=== PATIENT | male | born 1955 | race Caucasian/White ===

== ENCOUNTER 2020-08-29 08:00 | Outpatient (CLI) | payer MEDICARE, OTHER ==
[2020-08-29 11:54] LABS: BASOPHILS # (AUTO) 0.1 10^3/uL (0.0-0.1); BASOPHILS % (AUTO) 0.6 %; EOSINOPHILS # (AUTO) 0.4 10^3/uL (0.0-0.7); EOSINOPHILS % (AUTO) 4.4 %; HGB - HEMOGLOBIN 12.5 g/dL (14.0-18.0); LYMPHOCYTES # (AUTO) 1.6 10^3/uL (1.5-3.5); LYMPHOCYTES % (AUTO) 19.9 %; MEAN CORPUSCULAR HEMOGLOBIN 29.9 pg (27.0-31.0); MEAN CORPUSCULAR HGB CONC 31.7 g/dL (32.0-36.0); MEAN CORPUSCULAR VOLUME 94.3 fL (80.0-94.0); MEAN PLATELET VOLUME 12.4 fL (7.4-11.4); MONOCYTES # (AUTO) 0.5 10^3/uL (0.0-1.0); MONOCYTES % (AUTO) 6.6 %; NEUTROPHILS # (AUTO) 5.6 10^3/uL (1.5-6.6); PLT - PLATELET COUNT 225 10^3/uL (130-450); RED BLOOD COUNT 4.18 10^6/uL (4.70-6.10); RED CELL DISTRIBUTION WIDTH 13.2 % (12.0-15.0); WHITE BLOOD COUNT 8.2 x10^3/uL (4.8-10.8)
[2020-08-29 12:15] LABS: HEMOGLOBIN A1c% 7.4 % (4.27-6.07)
[2020-08-29 12:27] LABS: ALBUMIN 3.9 g/dL (3.2-5.5); ALBUMIN/GLOBULIN RATIO 1.3 (1.0-2.2); ALKALINE PHOSPHATASE 70 IU/L (42-121); ALT ALANINE AMINOTRANSFERASE 17 IU/L (10-60); AST ASPARTATE AMINOTRANSFERASE 18 IU/L (10-42); BILIRUBIN,TOTAL 0.8 mg/dL (0.2-1.0); BUN - BLOOD UREA NITROGEN 29 mg/dL (6-20); CALCIUM 9.4 mg/dL (8.5-10.3); CARBON DIOXIDE - CO2 25 mmol/L (21-32); CHLORIDE 106 mmol/L (101-111); CHOL/HDL RATIO 2.8 (<5.0); CHOLESTEROL 127 mg/dL; GLUCOSE 136 mg/dL (70-100); HDL CHOLESTEROL 45 mg/dL; LDL CHOLESTEROL,CALCULATED 70 mg/dL; LDL/HDL RATIO 1.6 (<3.6); TOTAL PROTEIN 6.8 g/dL (6.7-8.2); VLDL CHOLESTEROL 12 mg/dL
== END 2020-08-29 23:59 ==
LOC: LAB.WCP 08:00
PROVIDERS: ATTEND Family Medicine
DX: M17.10 Unilateral primary osteoarthritis, unspecified knee (principal); I12.9 Hypertensive chronic kidney disease with stage 1 through stage 4 chronic kidney disease, or unspecified chronic kidney disease; E11.22 Type 2 diabetes mellitus with diabetic chronic kidney disease; N18.2 Chronic kidney disease, stage 2 (mild); G47.30 Sleep apnea, unspecified; E66.9 Obesity, unspecified
CPT/HCPCS: 36415; 80050; 80061; 83036; G0103; 83721; 84153

== ENCOUNTER 2020-09-23 13:44 | Outpatient (CLI) | payer MEDICARE, OTHER ==
--- NOTE | 2020-09-23 14:19 | XRAY Report ---
PROCEDURE: Knee 3 View RT INDICATIONS: PARTIAL R KNEE ARTHROPLASTY PATELLA TECHNIQUE: 3 views of the right knee(s) were acquired. COMPARISON: None. FINDINGS: Bones: No fractures or dislocations. No suspicious bony lesions. Medial compartment arthroplasty h as been performed. Moderate periarticular osteophyte formation at the lateral and patellofemoral comp artments. Soft tissues: Small knee joint effusion. No suspicious soft tissue calcifications. IMPRESSION: 1. Osteoarthritis. 2. Postsurgical sequelae. 3. Small knee joint effusion. 4. No acute fracture. No osseous lesion. If symptoms and/or clinical suspicion for pathology continue , further assessment with repeat plain films, or advanced imaging (e.g., CT or bone scan) is recommen ded for further assessment. Reviewed by: Tiffany Huff MD on 09/23/2020 2:18 PM PST Approved by: Tiffany Huff MD on 09/23/2020 2:18 PM PST Station ID: [id number]
== END 2020-09-23 13:45 | disposition home or self-care (01) ==
LOC: DI.N 13:44
PROVIDERS: ATTEND Family Medicine
DX: M17.11 Unilateral primary osteoarthritis, right knee (principal); M25.461 Effusion, right knee; Z96.651 Presence of right artificial knee joint

== ENCOUNTER 2020-10-07 07:00 | Outpatient (CLI) | payer MEDICARE, OTHER ==
--- NOTE | 2020-10-07 14:56 | XRAY Report ---
PROCEDURE: Knee 4 View LT INDICATIONS: BILATERAL KNEE PX TECHNIQUE: 3 views of the left knee COMPARISON: None. FINDINGS: Bones: No fractures or dislocations. No suspicious bony lesions. Medial compartment arthroplasty h as been performed. Moderate tricompartment periarticular osteophyte formation is present. Moderate le ft knee lateral compartment narrowing. Soft tissues: No joint effusion. No suspicious soft tissue calcifications. IMPRESSION: 1. Knee arthroplasty. 2. Lateral compartment narrowing. 3. Osteoarthritis. Reviewed by: Tiffany Huff MD on 10/07/2020 2:55 PM PST Approved by: Tiffany Huff MD on 10/07/2020 2:55 PM PST Station ID: [id number]
== END 2020-10-07 23:59 | disposition home or self-care (01) ==
LOC: DI.N 07:00
PROVIDERS: ATTEND Orthopaedic Surgery
DX: M17.12 Unilateral primary osteoarthritis, left knee (principal)

== ENCOUNTER 2020-11-12 14:00 | Outpatient (CLI) | payer MEDICARE, OTHER ==
[2020-11-12 17:41] LABS: BASOPHILS # (AUTO) 0.1 10^3/uL (0.0-0.1); BASOPHILS % (AUTO) 0.6 %; EOSINOPHILS # (AUTO) 0.3 10^3/uL (0.0-0.7); EOSINOPHILS % (AUTO) 3.5 %; HCT - HEMATOCRIT 40.9 % (42.0-52.0); HGB - HEMOGLOBIN 13.3 g/dL (14.0-18.0); LYMPHOCYTES # (AUTO) 2.2 10^3/uL (1.5-3.5); LYMPHOCYTES % (AUTO) 24.4 %; MEAN CORPUSCULAR HEMOGLOBIN 30.4 pg (27.0-31.0); MEAN CORPUSCULAR HGB CONC 32.5 g/dL (32.0-36.0); MEAN CORPUSCULAR VOLUME 93.4 fL (80.0-94.0); MEAN PLATELET VOLUME 11.7 fL (7.4-11.4); MONOCYTES # (AUTO) 0.6 10^3/uL (0.0-1.0); MONOCYTES % (AUTO) 7.3 %; NEUTROPHILS # (AUTO) 5.6 10^3/uL (1.5-6.6); NEUTROPHILS % (AUTO) 63.9 %; PLT - PLATELET COUNT 228 10^3/uL (130-450); RED BLOOD COUNT 4.38 10^6/uL (4.70-6.10); RED CELL DISTRIBUTION WIDTH 13.2 % (12.0-15.0); WHITE BLOOD COUNT 8.8 x10^3/uL (4.8-10.8)
[2020-11-12 18:08] LABS: ALBUMIN 4.4 g/dL (3.2-5.5); ALBUMIN/GLOBULIN RATIO 1.6 (1.0-2.2); BILIRUBIN,TOTAL 0.7 mg/dL (0.2-1.0); CALCIUM 9.4 mg/dL (8.5-10.3); CREATININE 1.3 mg/dL (0.6-1.2); POTASSIUM 4.2 mmol/L (3.5-5.0); TOTAL PROTEIN 7.2 g/dL (6.7-8.2)
[2020-11-12 18:20] LABS: THYROID STIMULATING HORMONE 1.66 uIU/mL (0.34-5.60)
[2020-11-12 20:11] LABS: ESTIMATED AVERAGE GLUCOSE 160 mg/dL (70-100); HEMOGLOBIN A1c% 7.2 % (4.27-6.07)
== END 2020-11-12 23:59 | disposition home or self-care (01) ==
LOC: LAB.WCP 14:00
PROVIDERS: ATTEND Family Medicine
DX: M17.10 Unilateral primary osteoarthritis, unspecified knee (principal); D64.9 Anemia, unspecified; E66.9 Obesity, unspecified; Z96.652 Presence of left artificial knee joint; I12.9 Hypertensive chronic kidney disease with stage 1 through stage 4 chronic kidney disease, or unspecified chronic kidney disease; E11.22 Type 2 diabetes mellitus with diabetic chronic kidney disease; N18.2 Chronic kidney disease, stage 2 (mild)
CPT/HCPCS: 36415; 80053; 83036; 84443; 85025

== ENCOUNTER 2020-11-29 11:49 | Outpatient (CLI) | payer MEDICARE, OTHER | END 2020-11-29 11:50 | disposition home or self-care (01) | LOC: LAB.N 11:49 | PROVIDERS: ATTEND Orthopaedic Surgery | DX: Z01.812 Encounter for preprocedural laboratory examination (principal) | CPT/HCPCS: 36415; 85651; 86140 ==

== ENCOUNTER 2020-12-01 11:39 | Outpatient (CLI) | payer MEDICARE, OTHER | END 2020-12-01 11:40 | disposition home or self-care (01) | LOC: LAB 11:39 | PROVIDERS: ATTEND Orthopaedic Surgery | DX: Z01.812 Encounter for preprocedural laboratory examination (principal); Z20.822 Contact with and (suspected) exposure to COVID-19 ==

== ENCOUNTER 2020-12-04 07:31 | Day surgery (SDC) | payer MEDICARE, OTHER ==
[~2020-12-04 07:31] MED LIST: ACETAMINOPHEN 500 MG TABLET PO ONE; CELECOXIB 100 MG CAPSULE PO ONE; DEXAMETHASONE 10 MG/ML VIAL ONE; VANCOMYCIN 1 GM VIAL ONE
[2020-12-04] MEDS ORDERED: ONDANSETRON 4 MG/2 ML VIAL IVP PRN ×2 (07:52→08:33)
[2020-12-04] MEDS ORDERED: DOCUSATE SODIUM 100 MG CAPSULE PO PRN (07:52)
[2020-12-04] MEDS ORDERED: SODIUM CHLORIDE FLUSH 0.9% 10 ML SYRINGE IVP PRN (07:52)
[2020-12-04] MEDS ORDERED: EPINEPHrine 1 MG/ML AMP ONE (07:55)
[2020-12-04] MEDS ORDERED: fentaNYL 100 MCG/2 ML VIAL ONE ×3 (07:56→13:19)
[2020-12-04] MEDS ORDERED: PROPOFOL 1000 MG/100 ML 1,000 MG/100 ML BOTTLE IV ONE (07:56)
[2020-12-04] MEDS ORDERED: MIDAZOLAM 2 MG/2 ML VIAL ONE ×2 (07:56→08:37)
[2020-12-04] MEDS ORDERED: ROPIVACAINE 0.5% PF 20 ML AMPULE ONE (07:56)
[2020-12-04] MEDS ORDERED: BUPIVACAINE 0.5% PF 10 ML VIAL ONE (07:56)
[2020-12-04] MEDS ORDERED: ceFAZolin 3 GM in SODIUM CHLORIDE 0.9% 100ML 100 ML IV SCH (08:00)
[2020-12-04] MEDS ORDERED: ePHEDrine 50 MG/ML VIAL IVP PRN (08:33)
[2020-12-04] MEDS ORDERED: MORPHINE 2 MG/ML CARPUJECT IVP PRN (08:33)
[2020-12-04] MEDS ORDERED: HYDROmorphone 0.5 MG/0.5 ML SYRINGE IVP PRN (08:33)
[2020-12-04] MEDS ORDERED: NALOXONE 0.4 MG/ML VIAL IVP PRN (08:33)
[2020-12-04] MEDS ORDERED: fentaNYL 100 MCG/2 ML VIAL IVP PRN (08:33)
[2020-12-04] MEDS ORDERED: ATROPINE ABBOJECT 1 MG/10 ML SYRINGE IVP PRN (08:33)
[2020-12-04] MEDS ORDERED: METOCLOPRAMIDE 10 MG/2 ML VIAL IVP PRN (08:33)
--- NOTE | 2020-12-04 08:33 | ANESTHESIA ---
Pre-Anesthesia VS, & Labs - Diagnosis L knee OA - Procedure L TKA Vital Signs: Temp Pulse Resp BP Pulse Ox 36.6 C 69 16 131/79 H 97 12/04/20 07:39 12/04/20 07:39 12/04/20 07:39 12/04/20 07:39 12/04/20 07:39 Height: 5 ft 10 in Weight (kg): 134 kg Body Mass Index: 42.3 BMI Classification: Morbidly Obese - NPO >8 hours Last Fluid Intake: sips with am meds ERAS - Lab Results Current Lab Results: Laboratory Tests 12/04/20 08:06: POC Whole Bld Glucose 114 H Lab results reviewed: Yes Home Medications and Allergies Home Medications: Ambulatory Orders Acetaminophen [Tylenol] 650 mg PO Q6H PRN 11/20/20 Atorvastatin Calcium 40 mg PO QPM 11/20/20 Dulaglutide [Trulicity] 0.75 mg SQ OAW 11/20/20 Metoprolol Succinate [Toprol Xl] 100 mg PO DAILY 11/20/20 Omeprazole 20 mg PO DAILY 11/20/20 Pioglitazone HCl 15 mg PO DAILY 11/20/20 Tamsulosin [Flomax] 0.4 mg PO DAILY 11/20/20 Active Medications Acetaminophen (Acetaminophen 500 Mg Tablet) 1,000 mg PO Q6HR MOE Alcohol (Ethyl Alcohol 62% Swab Ampule) 1 amp GWEN BID MOE Aspirin (Aspirin Ec 81 Mg Tablet) 81 mg PO BID MOE Celecoxib (Celecoxib 100 Mg Capsule) 200 mg PO BID MOE Docusate Sodium (Docusate Sodium 100 Mg Capsule) 100 mg PO BID PRN PRN Reason: Constipation Hydromorphone HCl (Hydromorphone 1 Mg/Ml Carpuject) 1 mg IVP Q2HR PRN PRN Reason: Breakthrough Pain Cefazolin Sodium 3 gm/ Sodium (Chloride) 100 mls @ 200 mls/hr IV ONCE MOE Stop: 12/04/20 13:00 Cefazolin Sodium/Dextrose (Ancef 2 Gm/50 Ml) 2 gm in 50 mls @ 100 mls/hr IV Q8HR MOE Stop: 12/04/20 22:29 Potassium Chloride 20 meq/ (Sodium Chloride) 1,010 mls @ 100 mls/hr IV .Q10H6M MOE Ondansetron HCl (Ondansetron 4 Mg/2 Ml Vial) 4 mg IVP Q6HR PRN PRN Reason: Nausea / Vomiting Oxycodone HCl (Oxycodone 5 Mg Tablet) 5 mg PO Q6HR PRN PRN Reason: PAIN Sodium Chloride (Sodium Chloride Flush 0.9% 10 Ml Syringe) 10 ml IVP 0100,0900,1700 MOE Sodium Chloride (Sodium Chloride Flush 0.9% 10 Ml Syringe) 10 ml IVP PRN PRN PRN Reason: NEEDED PER PROVIDER ORDERS Aspirin [Aspir 81] 1 tab PO DAILY 03/21/14 Cinnamon Bark [Cinnamon] 1,000 mg PO BID 03/21/14 Lisinopril 10 mg PO DAILY 03/21/14 Metformin HCl 500 mg PO BID 03/21/14 Tramadol HCl 50 mg PO BID 03/21/14 Acetaminophen [Tylenol] 650 mg PO Q6H PRN 11/20/20 Atorvastatin Calcium 40 mg PO QPM 11/20/20 Dulaglutide [Trulicity] 0.75 mg SQ OAW 11/20/20 Metoprolol Succinate [Toprol Xl] 100 mg PO DAILY 11/20/20 Omeprazole 20 mg PO DAILY 11/20/20 Pioglitazone HCl 15 mg PO DAILY 11/20/20 Tamsulosin [Flomax] 0.4 mg PO DAILY 11/20/20 Allergies/Adverse Reactions: Allergies Allergy/AdvReac Type Severity Reaction Status Date / Time iodine AdvReac Intermediate Itching Verified 09/17/14 15:16 catfish AdvReac Nausea, Uncoded 11/20/20 15:33 diarrhea halibut AdvReac Nausea, Uncoded 11/20/20 15:33 diarrhea Anes History & Medical History - Anesthetic History Anesthesia Complications: reports: No previous complications Family history of Anesthesia Complications: Denies Family history of Malignant Hyperthermia: Denies - Medical History Cardiovascular: reports: Hypertension Pulmonary: reports: Sleep apnea Gastrointestinal: reports: Hiatal hernia, Other Urinary: reports: Benign prostate hypertrophy Musculoskeletal: reports: Osteoarthritis Endocrine/Autoimmune: reports: Type 2 diabetes Skin: reports: Other Smoking Status: Never smoker - Surgical History General: reports: Hiatal hernia repair Orthopedic: reports: Knee replacement Exam General: Alert, Oriented x3, Cooperative Dental: WNL Mouth Openin Fingerbreadth Neck Mobility: Normal Mallampati classification: III Thyromental Distance: 4-6 cm Respiratory: Lungs clear, Normal breath sounds, No respiratory distress Cardiovascular: Regular rate Neurological: Normal speech Mental/Cognitive Status: Alert/Oriented X3, Normal for patient Cognitive Status: Within normal limits Plan Anesthesia Type: General, Spinal, Adductor Block Regional Block: Per Surgeon's request for Post Op pain control Consent for Procedure(s) Verified and Reviewed: Yes Code Status: Attempt Resuscitation ASA classification: 2-Mild systemic disease Is this case an emergency?: No
[2020-12-04] MEDS ORDERED: CELECOXIB 100 MG CAPSULE PO SCH (09:00)
[2020-12-04] MEDS ORDERED: LACTATED RINGERS 1,000 ML IV SCH (09:00)
[2020-12-04] MEDS ORDERED: KETAMINE 500 MG/10 ML VIAL ONE (09:07)
[2020-12-04] MEDS ORDERED: ROCURONIUM 50 MG/5 ML VIAL ONE ×3 (09:14→11:38)
[2020-12-04] MEDS ORDERED: TRANEXAMIC ACID 1,000 MG/10 ML VIAL ONE ×2 (11:09→12:50)
[2020-12-04] MEDS ORDERED: SEVOFLURANE 250 ML LIQUID INH ONE (11:36)
[2020-12-04] MEDS ORDERED: HYDROGEN PEROXIDE 3% 473 ML BOTTLE TOP ONE (12:35)
[2020-12-04] MEDS ORDERED: BUPIVACAINE 0.5% PF 30 ML VIAL ONE (12:44)
[2020-12-04] MEDS ORDERED: BUPIVACAINE 0.5% PF 30 ML VIAL SUBQ ONE ×2 (12:45→13:10)
[2020-12-04] MEDS ORDERED: VANCOMYCIN 1 GM VIAL MC ONE (12:46)
--- NOTE | 2020-12-04 13:11 | OPERATIVE REPORT ---
Operative Report - General Procedure Date: 12/04/20 Planned Procedure: Removal of medial unicompartmental arthroplasty, revision to a left total knee arthroplasty Pre-Op Diagnosis: Valgus osteoarthritis, failed medial compartment unicompartmental arthropla Procedure Performed: Removal of unicompartmental medial compartment arthroplasty, left knee; revision to Storm & Nephew total knee arthroplasty: Legion total knee, #6 Oxinium posterior stabilized cemented femoral component, #5 tibial baseplate, 18 mm articular tibial insert, 26 mm biconvex patella, all components cemented with antibiotic Storm & Nephew cement Post Op Diagnosis: Same as preoperative diagnosis - Procedure Note Primary Surgeon: Jeff Bunn MD Secondary Surgeon: David Pena MD Anesthesia Provider: Veronica Jones CRNA Anesthesia Technique: General ET tube, Regional block Estimated Blood Loss (mL): 200 Indications: This is a 65-year-old man with progressive pain specially over the past 2 years to his left knee. He also has symptoms to right knee. Both knees have had med ial compartment arthroplasties about 5 years ago. He has had failure of the arthroplasties, progression of osteoarthritis to his knees, very symptomatic and unresponsive to nonoperative treatment. His x-rays suggest abnormality to the medial compartment arthroplasty with some loosening and complete loss of articular cartilage to patellofemoral and lateral compartment with valgus angulation. He does have comorbidities as noted on his preoperative evaluation including obesity and diabetes. Findings: He had mild synovitis to the knee suggestive of foreign body reaction. There was no overt signs of infection. The lateral and patellofemoral compartments were completely devoid of articular cartilage and had considerable bone wear, eburnated surfaces and osteophytes. The arthroplasty was not grossly loose but did remove fairly easily, especially the femoral component which I suspect had some loosening. The femoral component had impacted into the femur proximally. The tibial bearing was free-floating. Complications: None - Other Other Information/Narrative: The patient was brought to the operating room table. A spinal was attempted but was unsuccessful. His anesthesia was converted to a general endotracheal with regional abductor block. After satisfactory anesthesia been obtained, patient was placed in a supine position. The left lower extremity was prepped and draped in sterile manner in the usual fashion. A pneumatic tourniquet was used to the proximal left thigh. This was a sterile tourniquet placed over cast padding to protect skin. An Jarvis leg melendrez had been applied to the operating room table in a sterile fashion. A timeout procedure was performed by the entire operating room team and all were in agreement. The previous medial scar was reopened and continued proximally in a curvilinear fashion to the midline of the anterior thigh after the knee had been placed in flexion. Care was to develop full-thickness fasciocutaneous flaps to avoid any skin necrosis as there was scarring around the arthrotomy from previous exposure. The quadriceps tendon was split medially and longitudinally. A quadriceps snip was not necessary. The patella insertion was carefully protected. The patella was everted and the knee was flexed. The distal femoral jig was applied by inserting it through a 9.5 mm intramedullary hole which was performed. The distal femoral cutting block was set at the primary cut, 5 degrees of valgus. The lateral femoral condyle and notch was removed. The block was left in place. The previous arthroplasty was used using a thin microsagittal saw blade, flexible osteotomes and stacked osteotomes to carefully remove the arthroplasty with minimal bone removal. Almost all of the cement came with the components.The femoral cutting guide was then reutilized completing the distal femoral cut both medially and laterally. There was some deficiency of bone posteriorly on the medial side. Next the femoral sizing guide was applied to the femur. This was aligned to Whitesides axis and the transepicondylar axis. The lateral femoral condyle was the side that was referenced and the block was pinned. A stylus was used to reference the femoral trochlea and a #6 trial was indicated medial lateral drill holes were inserted to allow application of the #6 lesion femoral cutting block. The cutting block was secured with pins and the 4 and 1 cutting block was then utilized to complete all 4 cuts. This seemed to provide excellent fit to the femoral component. Most of the posterior deficiency on the medial side was completely resolved with the chamfer cuts. Next the tibia was exposed by flexing the knee using a posterior retractor to sublux the tibia anteriorly and retractors medially and laterally to protect the collateral ligaments. Approximately 2 mm was to be removed from the medial side but this amounted to additional removal of the lateral side to almost 12 mm.I tried to take slightly less bone by using the 1 mm stylus on the medial side. The tibial block was then pinned. The tibial block had been aligned with the mechanical axis in both coronal and sagittal planes. The [place] precision blade was then used to perform the cut and it led to a flush cut without any defects in the cancellous bone. A spacer block was inserted an 18 mm spacer block fit well with good stability and alignment. The tibia was then exposed and the medullary drill and punch fin holes were made in line to the mechanical axis. A #5 tibial component was the appropriate size. The patella was everted and the 26 mm biconvex reamer was used to seat the patella. Osteophytes had been removed from the patella and. The central ridge of the patella was used to center the reamer of the biconvex patella.Range of motion of the knee had been done with the trial components and there was good motion, stability. There was some lateral tracking of the patella and a inside lateral retinacular work release was performed from vastus lateralis to patellar tendon using electrocautery. The tourniquet was elevated to 250 mmHg to left thigh. Pulsatile lavage was used to clean the bony surfaces. Antibiotic cement was used to implant the components: Tibia first, femoral component second and patella lastly. A trial articular insert was inserted and the knee was placed in full extension. After the cement had hardened the components were then taken through range of motion with good alignment, stability and tracking of the patella. The permanent 18 mm tibial articular insert was inserted. The tourniquet was deflated after 28 minutes. Estimated blood loss was 200 cc. The patient is allergic to iodine, therefore, Betadine irrigation was not utilized. I did use hydrogen peroxide irrigation to the knee and 2 g of vancomycin powder were inserted prior to closure of the arthrotomy. The arthrotomy was closed with #1 Ethibond proximal and distal to the patella with the knee in about 30 degrees of flexion. #1 strata fix was also used to do a running suture and closed the arthrotomy. The subcutaneous tissue was closed with 2-0 Monocryl, skin closed with 3-0 Monocryl and Dermabond. A silver impregnated dressing was applied after the Dermabond had dried. The patient had full extension and full flexion with good stability and alignment of the left knee as well as good tracking of the patella. He tolerated procedure well. Dr. Pena was her sampler first, Erickson Thomas second assist. A assistant executive housekeeper was felt to be necessary to help with exposure, protection of vital structures, implantation of components, use of cement, wound closure.
[2020-12-04] MEDS ORDERED: LACTATED RINGERS 1,000 ML IV ONE ×2 (13:58→14:31)
[2020-12-04] MEDS ORDERED: ceFAZolin 2 GM/50 ML 2 GM/50 ML BAG IV SCH (14:00)
--- NOTE | 2020-12-04 15:00 | ANESTHESIA POST OP EVALUATION ---
Anesthesia Post Eval - Post Anesthesia Eval Vitals: Last Vital Signs Temp 36.4 C L 12/04/20 14:45 Pulse 86 12/04/20 14:45 Resp 16 12/04/20 14:45 BP 118/71 12/04/20 14:45 Pulse Ox 93 12/04/20 14:45 CV Function Including HR & BP: Stable Pain Control: Satisfactory Nausea & Vomiting: Negative Mental Status: Baseline Respiratory Status: Airway Patent Hydration Status: Satisfactory Anesthesia Complications: None
--- NOTE | 2020-12-04 15:02 | CONSULTATION NOTE ---
Referring Provider Name of Referring Provider:: Dr. Worrell Consult Date: 12/04/20 Chief Complaint - Chief Complaint Chief Complaint: status post of left total knee arthroplasty History of Present Illness - Admitted From Admitted From:: medical floor - History Obtained From Records Reviewed: [facility] History obtained from: pt - History of Present Illness HPI Comment/Other: This is a [id number] male with a past medical history Of diabetes, hypertension, BPH, GERD, hyperlipidemia Who is at medical floor with same day surgery for status post care of Removal of medial unicompartmental arthroplasty, revision to a left total knee arthroplasty which was done on today by orthopedic s surgeon. pt report he has slight pain when he tries to move his left lower extremity, otherwise he has no other complaints. he denies chest pain, fever, chill, headache, shortness of breath. pt also present intact distal neurovascular status in his left lower extremities. Medical team was consulted for medical management. History - Past Medical History Cardiovascular: reports: Hypertension Respiratory: reports: Sleep apnea Endocrine/Autoimmune: reports: Type 2 diabetes GI: reports: Hiatal hernia, Other : reports: Benign prostate hypertrophy HEENT: reports: None Psych: reports: None Musculoskeletal: reports: Osteoarthritis Derm: reports: Other MRSA Hx?: No - Past Surgical History General: reports: Hiatal hernia repair Ortho: reports: Knee replacement Meds/Allgy - Home Medications Home Medications: Ambulatory Orders Medication Instructions Recorded Confirmed Aspirin [Aspir 81] 1 tab PO DAILY 03/21/14 11/20/20 Cinnamon Bark [Cinnamon] 1,000 mg PO BID 03/21/14 11/20/20 Lisinopril 10 mg PO DAILY 03/21/14 11/20/20 Metformin HCl 500 mg PO BID 03/21/14 11/20/20 Tramadol HCl 50 mg PO BID 03/21/14 11/20/20 Acetaminophen [Tylenol] 650 mg PO Q6H PRN 11/20/20 11/20/20 Atorvastatin Calcium 40 mg PO QPM 11/20/20 11/20/20 Dulaglutide [Trulicity] 0.75 mg SQ OAW 11/20/20 11/20/20 Metoprolol Succinate [Toprol Xl] 100 mg PO DAILY 11/20/20 11/20/20 Omeprazole 20 mg PO DAILY 11/20/20 12/04/20 Pioglitazone HCl 15 mg PO DAILY 11/20/20 11/20/20 Tamsulosin [Flomax] 0.4 mg PO DAILY 11/20/20 12/04/20 - Allergies Allergies/Adverse Reactions: Allergies Allergy/AdvReac Type Severity Reaction Status Date / Time iodine AdvReac Intermediate Itching Verified 09/17/14 15:16 catfish AdvReac Nausea, Uncoded 11/20/20 15:33 diarrhea halibut AdvReac Nausea, Uncoded 11/20/20 15:33 diarrhea Review of Systems - Constitutional Constitutional: denies: Fatigue, Fever, Chills, Malaise, Weakness, Diaphoresis, Night sweats - Eyes Eyes: denies: Pain, Blurred vision, Field loss, Vision loss, Dipolpia - Ears, Nose & Throat Ears, Nose & Throat: denies: Ear pain, Tinnitus, Nosebleeds, Bleeding gums - Cardiovascular Cariovascular: denies: Irregular heart rate, Palpitations, Chest pain, Lightheadedness, Syncope, Exertional dyspnea - Respiratory Respiratory: denies: Cough, Sputum production, Wheezing, Hemoptysis, Orthopnea, SOB at rest, SOB with exertion - Gastrointestinal Gastrointestinal: denies: Abdominal pain, Constipation, Diarrhea, Black stools, Bloody stools, Nausea, Vomiting - Genitourinary Genitourinary: denies: Dysuria, Urgency, Incontinence - Musculoskeletal Musculoskeletal: reports: Limited range of motion, Joint pain. denies: Muscle pain, Muscle aches - Integumentary Integumentary: denies: Rash, Lesions, Lumps - Neurological Neurological: denies: General weakness, Focal weakness, Headache, Dizziness, Numbness, Pre-existing deficit, Abnormal gait, Seizures, Incoordination, Slurred speech - Psychiatric Psychiatric: denies: Depression, Delusions - Endocrine Endocrine: denies: Polyuria, Polydypsia - Hematologic/Lymphatic Hematologic/Lymphatic: denies: Anemia, Petechiae Exam - Vital Signs Vital Signs: Vital Signs x48h Temp Pulse Pulse Resp BP BP Pulse Ox 12/04/20 14:45 36.4 C L 86 16 118/71 93 12/04/20 14:42 36.4 C L 84 16 120/70 95 12/04/20 14:30 36.4 C L 86 20 120/76 95 12/04/20 14:25 36.5 C 88 20 121/72 93 12/04/20 14:20 36.5 C 88 20 124/71 94 12/04/20 14:15 36.4 C L 88 20 122/79 94 12/04/20 14:10 36.2 C L 88 20 127/77 94 12/04/20 14:05 36 C L 87 20 131/80 H 96 12/04/20 14:00 36 C L 94 20 139/80 H 93 12/04/20 07:39 36.6 C 69 16 131/79 H 97 - Physical Exam General Appearance: positive: No acute distress, Alert. negative: Lethargic Eyes Bilateral: positive: Normal inspection, PERRL, No lid inflammation ENT: positive: ENT inspection nml, No signs of dehydration. negative: Purulent nasal drainage Neck: positive: Nml inspection, Trachea midline. negative: Thyromegaly, Tracheal deviation Respiratory: positive: Chest non-tender, No respiratory distress, Breath sounds nml. negative: Wheezes, Rales Cardiovascular: positive: Regular rate & rhythm, No murmur. negative: Tachycardia, Bradycardia, Systolic murmur, Diastolic murmur Peripheral Pulses: positive: 2+ Abdomen: positive: Non-tender, Nml bowel sounds, No distention. negative: Tenderness Back: positive: Nml inspection Skin: positive: Color nml, Warm, Dry. negative: Cyanosis Extremities: positive: Other (left knee was covered by gauze by surgeon, pt has intact distal neurovascular status on left lower extremity). negative: Calf tenderness Neurologic/Psychiatric: positive: Oriented x3, Sensation nml, Mood/affect nml. negative: Weakness, Sensory loss, Facial droop, Slurred/abnml speech, Depressed mood/affect Conclusion/Plan - Plan Plan: 1, status post care of left knee arthroplasty Followup with surgeon, continue pain control, PT/OT evaluation and treatment for pt, aspirin for DVT prophylaxis per surgeon. expect pt be d/c on tomorrow by surgeon. 2, diabetes II. pt report he did not take insulin at home. explain pt we start with insulin, slide scale, glucose check with ACHS, and hypoglycemia protocol, and check A1C as well. pt understood that. pt is likely d/c with continuing his home diabetes meds 3, HTN. Stable now, Patient take lisinopril and metoprolol in the home, we will resume, Vital signs monitor 4, Hyperlipidemia We will resume home Lipitor 5, GERD we will resume home Protonix 6, BPH We will continue home Flomax, D/C the [place]ley per surgeon, monitor I&O 7, acute on chronic renal Insufficiency pt had creatinine 1.4 today, slight elevated creatinine. Hold other NSAIDs except Aspirin, avoid nephrotoxin agents, IVF, lab monitor - Lab Results Lab results reviewed: Yes Fish Bones: 12/04/20 15:27 12/04/20 15:27
--- NOTE | 2020-12-04 15:37 | XRAY Report ---
PROCEDURE: Knee 2 View LT INDICATIONS: POST OP FILM L KNEE TKA TECHNIQUE: 2 views of the left knee(s) were acquired. COMPARISON: None. FINDINGS: Expected postoperative alignment of left knee arthroplasty. Hardware appears intact. Expected postsur gical soft tissue sequela. Chronic fracture deformity of the fibular diaphysis. IMPRESSION: Expected postoperative appearance. Reviewed by: Eddie Cui MD on 12/04/2020 3:36 PM PDT Approved by: Eddie Cui MD on 12/04/2020 3:36 PM PDT Station ID: [id number]
[2020-12-04 15:39] LABS: BASOPHILS # (AUTO) 0.1 10^3/uL (0.0-0.1); BASOPHILS % (AUTO) 0.3 %; HCT - HEMATOCRIT 37.7 % (42.0-52.0); HGB - HEMOGLOBIN 12.3 g/dL (14.0-18.0); LYMPHOCYTES # (AUTO) 0.8 10^3/uL (1.5-3.5); LYMPHOCYTES % (AUTO) 4.7 %; MEAN CORPUSCULAR HEMOGLOBIN 30.9 pg (27.0-31.0); MEAN CORPUSCULAR HGB CONC 32.6 g/dL (32.0-36.0); MEAN CORPUSCULAR VOLUME 94.7 fL (80.0-94.0); MEAN PLATELET VOLUME 10.3 fL (7.4-11.4); MONOCYTES # (AUTO) 0.2 10^3/uL (0.0-1.0); NEUTROPHILS # (AUTO) 16.5 10^3/uL (1.5-6.6); NEUTROPHILS % (AUTO) 93.3 %; PLT - PLATELET COUNT 203 10^3/uL (130-450); RED BLOOD COUNT 3.98 10^6/uL (4.70-6.10); RED CELL DISTRIBUTION WIDTH 13.2 % (12.0-15.0); WHITE BLOOD COUNT 17.7 x10^3/uL (4.8-10.8)
[2020-12-04] MEDS: HYDROmorphone 1 MG/ML CARPUJECT IVP PRN ×2 (15:39→23:41)
[2020-12-04] MEDS: NS W/20 MEQ KCL 1,000 ML IV SCH (15:39)
[2020-12-04] MEDS: oxyCODONE 5 MG TABLET PO PRN ×2 (15:46→21:30)
[2020-12-04] MEDS: ASPIRIN EC 81 MG TABLET PO SCH ×2 (15:46→21:29)
[2020-12-04] MEDS: ethyl alcohoL 62% SWAB AMPULE NAS SCH ×2 (15:47→21:29)
[2020-12-04 15:48] LABS: CALCIUM 8.6 mg/dL (8.5-10.3); CREATININE 1.4 mg/dL (0.6-1.2); POTASSIUM 5.1 mmol/L (3.5-5.0)
[2020-12-04] MEDS: SODIUM CHLORIDE FLUSH 0.9% 10 ML SYRINGE IVP SCH ×3 (15:53→23:49)
[2020-12-04] MEDS: ceFAZolin 2 GM/50 ML 2 GM/50 ML BAG IV SCH ×2 (16:02→23:38)
[2020-12-04] MEDS: INSULIN ASPART 300 UNIT/3 ML PEN SUBQ SCH ×2 (17:30→21:27)
[2020-12-04] MEDS: ACETAMINOPHEN 500 MG TABLET PO SCH ×2 (17:32→23:39)
[2020-12-04] MEDS: METOPROLOL SUCCINATE 50 MG TABLET PO SCH (19:44)
[2020-12-04 20:57] LABS: ESTIMATED AVERAGE GLUCOSE 160 mg/dL (70-100); HEMOGLOBIN A1c% 7.2 % (4.27-6.07)
[2020-12-04] MEDS ORDERED: INSULIN GLARGINE 300 UNIT/3 ML PEN SUBQ SCH ×2 (21:00)
[2020-12-04] MEDS ORDERED: ATORVASTATIN 40 MG TABLET PO SCH (21:00)
[2020-12-05] MEDS: NS W/20 MEQ KCL 1,000 ML IV SCH (02:06)
[2020-12-05] MEDS: oxyCODONE 5 MG TABLET PO PRN ×2 (03:30→09:31)
[2020-12-05 04:59] LABS: BASOPHILS % (AUTO) 0.2 %; HCT - HEMATOCRIT 32.9 % (42.0-52.0); HGB - HEMOGLOBIN 10.8 g/dL (14.0-18.0); LYMPHOCYTES # (AUTO) 1.4 10^3/uL (1.5-3.5); LYMPHOCYTES % (AUTO) 8.2 %; MEAN CORPUSCULAR HEMOGLOBIN 31.2 pg (27.0-31.0); MEAN CORPUSCULAR HGB CONC 32.8 g/dL (32.0-36.0); MEAN CORPUSCULAR VOLUME 95.1 fL (80.0-94.0); MEAN PLATELET VOLUME 10.2 fL (7.4-11.4); MONOCYTES # (AUTO) 1.2 10^3/uL (0.0-1.0); MONOCYTES % (AUTO) 7.4 %; NEUTROPHILS # (AUTO) 14.1 10^3/uL (1.5-6.6); NEUTROPHILS % (AUTO) 83.8 %; PLT - PLATELET COUNT 227 10^3/uL (130-450); RED BLOOD COUNT 3.46 10^6/uL (4.70-6.10); RED CELL DISTRIBUTION WIDTH 13.5 % (12.0-15.0); WHITE BLOOD COUNT 16.9 x10^3/uL (4.8-10.8)
[2020-12-05 05:10] LABS: CALCIUM 8.4 mg/dL (8.5-10.3); CREATININE 1.1 mg/dL (0.6-1.2); POTASSIUM 4.4 mmol/L (3.5-5.0)
[2020-12-05] MEDS: ACETAMINOPHEN 500 MG TABLET PO SCH ×2 (06:23→11:46)
[2020-12-05] MEDS ORDERED: PANTOPRAZOLE 40 MG TABLET PO SCH (07:00)
[2020-12-05] MEDS: INSULIN ASPART 300 UNIT/3 ML PEN SUBQ SCH ×2 (07:28→11:47)
[2020-12-05 07:29] LABS: ABSOLUTE RETICS # AUTO 0.041 10^6/uL (0.020-0.110); RED BLOOD COUNT 3.49 10^6/uL (4.70-6.10); RETICULOCYTE COUNT % (AUTO) 1.18 % (0.5-2.3)
--- NOTE | 2020-12-05 07:48 | PROVIDER PROGRESS NOTE ---
Subjective - General Procedure Date: 12/04/20 Post Op Days: 1 Procedure Performed: Left TKA with revision - Review of Systems Wound/Incisions: positive: Dressing dry and intact General: negative: Fever, Chills Pulmonary: negative: Shortness of breath Cardiovascular: negative: Chest pain Gastrointestinal: negative: Nausea, Vomiting - Other Other Information/Narrative: Patient is a 65-year-old male With a history of diabetes type 2, obesity, GERD DJD and CKD and is postop day 1 left total knee arthroplasty with removal of partial knee replacement. Objective - Patient Data Vital Signs: Vital Signs x48h Temp Pulse Resp BP Pulse Ox 12/05/20 07:19 36.8 C 73 16 126/71 97 12/05/20 03:29 36.4 C L 85 18 129/70 97 12/04/20 23:49 36.8 C 91 16 143/73 H 95 Weight: Weight 12/03/20 12/04/20 12/05/20 23:59 23:59 23:59 Weight (kg) 134 kg Intake & Output: Intake and Output Totals x24h 12/03/20 12/04/20 12/05/20 23:59 23:59 23:59 Intake Total 1320 290 Output Total 1200 1825 Balance 120 -1535 - Lab Results Lab Results: 12/05/20 04:45 12/05/20 04:45 Other Lab Results: Lab Results x24hrs 12/05/20 12/05/20 12/05/20 Range/Units 07:18 04:45 04:45 WBC (4.8-10.8) x10^3/uL RBC 3.49 L (4.70-6.10) 10^6/uL Hgb (14.0-18.0) g/dL Hct (42.0-52.0) % MCV (80.0-94.0) fL MCH (27.0-31.0) pg MCHC (32.0-36.0) g/dL RDW (12.0-15.0) % Plt Count (130-450) 10^3/uL MPV (7.4-11.4) fL Reticulocyte % (Auto) 1.18 (0.5-2.3) % Neut # (Auto) (1.5-6.6) 10^3/uL Lymph # (Auto) (1.5-3.5) 10^3/uL [place] # (Auto) (0.0-1.0) 10^3/uL Eos # (Auto) (0.0-0.7) 10^3/uL Baso # (Auto) (0.0-0.1) 10^3/uL Absolute Nucleated RBC x10^3/uL Nucleated RBC % /100WBC Absolute Retic 0.041 (0.020-0.110) 10^6/uL Sodium 136 (135-145) mmol/L Potassium 4.4 (3.5-5.0) mmol/L Chloride 103 (101-111) mmol/L Carbon Dioxide 25 (21-32) mmol/L Anion Gap 8.0 (6-13) BUN 32 H (6-20) mg/dL Creatinine 1.1 (0.6-1.2) mg/dL Estimated GFR (MDRD) 67 L (>89) Glucose 158 H (70-100) mg/dL POC Whole Bld Glucose 124 H (70 - 100) mg/dL Estimat Average Glucose (70-100) mg/dL Hemoglobin A1c % (4.27-6.07) % Calcium 8.4 L (8.5-10.3) mg/dL 12/05/20 12/04/20 12/04/20 Range/Units 04:45 20:42 16:57 WBC 16.9 H (4.8-10.8) x10^3/uL RBC 3.46 L (4.70-6.10) 10^6/uL Hgb 10.8 L (14.0-18.0) g/dL Hct 32.9 L (42.0-52.0) % MCV 95.1 H (80.0-94.0) fL MCH 31.2 H (27.0-31.0) pg MCHC 32.8 (32.0-36.0) g/dL RDW 13.5 (12.0-15.0) % Plt Count 227 (130-450) 10^3/uL MPV 10.2 (7.4-11.4) fL Reticulocyte % (Auto) (0.5-2.3) % Neut # (Auto) 14.1 H (1.5-6.6) 10^3/uL Lymph # (Auto) 1.4 L (1.5-3.5) 10^3/uL [place] # (Auto) 1.2 H (0.0-1.0) 10^3/uL Eos # (Auto) 0.0 (0.0-0.7) 10^3/uL Baso # (Auto) 0.0 (0.0-0.1) 10^3/uL Absolute Nucleated RBC 0.00 x10^3/uL Nucleated RBC % 0.0 /100WBC Absolute Retic (0.020-0.110) 10^6/uL Sodium (135-145) mmol/L Potassium (3.5-5.0) mmol/L Chloride (101-111) mmol/L Carbon Dioxide (21-32) mmol/L Anion Gap (6-13) BUN (6-20) mg/dL Creatinine (0.6-1.2) mg/dL Estimated GFR (MDRD) (>89) Glucose (70-100) mg/dL POC Whole Bld Glucose 341 H 248 H (70 - 100) mg/dL Estimat Average Glucose (70-100) mg/dL Hemoglobin A1c % (4.27-6.07) % Calcium (8.5-10.3) mg/dL 12/04/20 12/04/20 12/04/20 Range/Units 15:27 15:27 15:27 WBC 17.7 H (4.8-10.8) x10^3/uL RBC 3.98 L (4.70-6.10) 10^6/uL Hgb 12.3 L (14.0-18.0) g/dL Hct 37.7 L (42.0-52.0) % MCV 94.7 H (80.0-94.0) fL MCH 30.9 (27.0-31.0) pg MCHC 32.6 (32.0-36.0) g/dL RDW 13.2 (12.0-15.0) % Plt Count 203 (130-450) 10^3/uL MPV 10.3 (7.4-11.4) fL Reticulocyte % (Auto) (0.5-2.3) % Neut # (Auto) 16.5 H (1.5-6.6) 10^3/uL Lymph # (Auto) 0.8 L (1.5-3.5) 10^3/uL [place] # (Auto) 0.2 (0.0-1.0) 10^3/uL Eos # (Auto) 0.0 (0.0-0.7) 10^3/uL Baso # (Auto) 0.1 (0.0-0.1) 10^3/uL Absolute Nucleated RBC 0.00 x10^3/uL Nucleated RBC % 0.0 /100WBC Absolute Retic (0.020-0.110) 10^6/uL Sodium 138 (135-145) mmol/L Potassium 5.1 H (3.5-5.0) mmol/L Chloride 97 L (101-111) mmol/L Carbon Dioxide 24 (21-32) mmol/L Anion Gap 17.0 H (6-13) BUN 33 H (6-20) mg/dL Creatinine 1.4 H (0.6-1.2) mg/dL Estimated GFR (MDRD) 51 L (>89) Glucose 222 H (70-100) mg/dL POC Whole Bld Glucose (70 - 100) mg/dL Estimat Average Glucose 160 H (70-100) mg/dL Hemoglobin A1c % 7.2 H (4.27-6.07) % Calcium 8.6 (8.5-10.3) mg/dL 12/04/20 Range/Units 08:06 WBC (4.8-10.8) x10^3/uL RBC (4.70-6.10) 10^6/uL Hgb (14.0-18.0) g/dL Hct (42.0-52.0) % MCV (80.0-94.0) fL MCH (27.0-31.0) pg MCHC (32.0-36.0) g/dL RDW (12.0-15.0) % Plt Count (130-450) 10^3/uL MPV (7.4-11.4) fL Reticulocyte % (Auto) (0.5-2.3) % Neut # (Auto) (1.5-6.6) 10^3/uL Lymph # (Auto) (1.5-3.5) 10^3/uL [place] # (Auto) (0.0-1.0) 10^3/uL Eos # (Auto) (0.0-0.7) 10^3/uL Baso # (Auto) (0.0-0.1) 10^3/uL Absolute Nucleated RBC x10^3/uL Nucleated RBC % /100WBC Absolute Retic (0.020-0.110) 10^6/uL Sodium (135-145) mmol/L Potassium (3.5-5.0) mmol/L Chloride (101-111) mmol/L Carbon Dioxide (21-32) mmol/L Anion Gap (6-13) BUN (6-20) mg/dL Creatinine (0.6-1.2) mg/dL Estimated GFR (MDRD) (>89) Glucose (70-100) mg/dL POC Whole Bld Glucose 114 H (70 - 100) mg/dL Estimat Average Glucose (70-100) mg/dL Hemoglobin A1c % (4.27-6.07) % Calcium (8.5-10.3) mg/dL - Imaging Results Radiology Imaging: positive: EMP read indepedently - Current Medications Current Medications: Current Medications Generic Name Dose Route Start Last Admin Trade Name Freq PRN Reason Stop Dose Admin Acetaminophen 1,000 mg 12/04/20 18:00 12/05/20 06:23 Acetaminophen 500 Mg Tablet PO 1,000 mg Q6HR MOE Administration Alcohol 1 amp 12/04/20 15:00 12/04/20 21:29 Ethyl Alcohol 62% Swab Ampule GWEN 1 amp BID MOE Administration Aspirin 81 mg 12/04/20 15:00 12/04/20 21:29 Aspirin Ec 81 Mg Tablet PO 81 mg BID MOE Administration Atorvastatin Calcium 40 mg 12/04/20 21:00 12/04/20 21:29 Atorvastatin 40 Mg Tablet PO 40 mg QPM MOE Administration Hydromorphone HCl 1 mg 12/04/20 07:52 12/04/20 23:41 Hydromorphone 1 Mg/Ml Carpuject IVP 1 mg Q2HR PRN Administration Breakthrough Pain Insulin Aspart 1 - 9 unit 12/04/20 17:00 12/05/20 07:28 Insulin Aspart 300 Unit/3 Ml Pen SUBQ Not Given 0800,1200,1700,2100 [facility] Protocol Insulin Glargine 10 unit 12/04/20 21:00 12/04/20 21:28 Insulin Glargine 300 Unit/3 Ml Pen SUBQ 10 unit QPM MOE Administration Metoprolol Succinate 100 mg 12/04/20 18:42 12/04/20 19:44 Metoprolol Succinate 50 Mg Tablet PO 100 mg DAILY MOE Administration Oxycodone HCl 5 mg 12/04/20 07:52 12/05/20 03:30 Oxycodone 5 Mg Tablet PO 5 mg Q6HR PRN Administration PAIN Pantoprazole Sodium 40 mg 12/05/20 07:00 12/05/20 06:23 Pantoprazole 40 Mg Tablet PO 40 mg QDAC MOE Administration Sodium Chloride 10 ml 12/04/20 09:00 12/04/20 23:49 Sodium Chloride Flush 0.9% 10 Ml Syringe IVP Not Given 0100,0900,1700 [facility] - Physical Exam Wound/Incisions: positive: Dressing dry and intact General Appearance: positive: No acute distress Skin: positive: Color nml, Warm Neurologic/Psychiatric: positive: Oriented x3, Motor nml, Sensation nml ABX Reporting Has patient been on IV antibiotics over the past 48 hours?: Yes Impression/Plan - Problem List Problem List: Patient is a 75-year-old male with a history including obesity, GERD, hypothyroidism, DJD, diabetes type 2, hypertension anemia and chronic kidney disease stage III Who is postop day 1 left TKA with a partial knee replacement revision. Patient showing no signs or symptoms of infection he has completed his first round PT is 2 more scheduled today. Patient is being comanaged by hospitalist. Patient shows no signs or symptoms of infection is able to get to the chair and get to the commode.Patient's initial blood sugars after surgery were slightly high since been placed on insulin sliding scale and they have come back down target is 150. Providing safe completion of physical therapy sessions today patient can be discharged home.
--- NOTE | 2020-12-05 07:57 | Discharge Plan ---
Discharge Plan Problem Reviewed?: Yes Disposition: Home, Self Care Diet: Diabetic Activity Restrictions: Activity as Tolerated Shower Restrictions: No Driving Restrictions: Yes (Do not operate motor vehicle) Weight Bearing: Partial Weight Additional Instructions or Follow Up instructions: Patient is 65-year-old male being discharged postop day 1 for left TKA with a partial knee replacement revision. Patient is to continue continue his home meds. Patient is to take scheduled tramadol 50 mg 1 tablet every 6 hours and is scheduled 500 mg of Tylenol every 4 hours and use 1 tablet 5 mg oxycodone for breakthrough pain as needed for pain greater than 8 out of 10. Patient is to take 81 mg aspirin 1 in the morning 1 in the evening every day for 6 weeks for blood clot prevention.Patient's weightbearing status is weightbearing as tolerated using a front wheeled walker, patient has a front wheeled walker already. Patient is scheduled for outpatient physical therapy for gentle range of motion of the left knee. Patient not to excessively bend his left knee but can do heel slides as tolerated. Patient to monitor for signs symptoms of infection he has his first postop visit this at [facility] at 1145. No Smoking: If you smoke, Please STOP! Call for help. Follow-up with: Brendan Peres MD [Primary Care Provider] -
[2020-12-05] MEDS: ethyl alcohoL 62% SWAB AMPULE NAS SCH (08:03)
[2020-12-05] MEDS: METOPROLOL SUCCINATE 50 MG TABLET PO SCH (08:03)
[2020-12-05] MEDS: ASPIRIN EC 81 MG TABLET PO SCH (08:03)
[2020-12-05] MEDS: SODIUM CHLORIDE FLUSH 0.9% 10 ML SYRINGE IVP SCH (08:04)
[2020-12-05 08:08] LABS: % IRON SATURATION 19 % (20-50); IRON 50 ug/dL (45-182); TOTAL IRON BINDING CAPACITY 270 ug/dL (250-450); TRANSFERRIN 193 mg/dL (180-329)
[2020-12-05] MEDS ORDERED: TAMSULOSIN 0.4 MG CAPSULE PO SCH (09:00)
[2020-12-05] MEDS ORDERED: METOPROLOL SUCCINATE 50 MG TABLET PO SCH (09:00)
[2020-12-05] MEDS: HYDROmorphone 1 MG/ML CARPUJECT IVP PRN (10:21)
[2020-12-05 13:06] VITALS: BP 106/70
== END 2020-12-05 13:10 | disposition home or self-care (01) ==
LOC: SDS 07:31 → MS2 14:37 → SDS 12-05 13:10
PROVIDERS: ATTEND Orthopaedic Surgery
PROC: 0SRD069 Replacement of Left Knee Joint with Oxidized Zirconium on Polyethylene Synthetic Substitute, Cemented, Open Approach (ICD-10-PCS; 2020-12-04)
PROC: 0SPD0JZ Removal of Synthetic Substitute from Left Knee Joint, Open Approach (ICD-10-PCS; principal; 2020-12-04 08:30)
DX: T84.093A Other mechanical complication of internal left knee prosthesis, initial encounter (principal); M17.0 Bilateral primary osteoarthritis of knee; E11.9 Type 2 diabetes mellitus without complications; N40.0 Benign prostatic hyperplasia without lower urinary tract symptoms; K21.9 Gastro-esophageal reflux disease without esophagitis; E78.5 Hyperlipidemia, unspecified; G47.30 Sleep apnea, unspecified; Z79.4 Long term (current) use of insulin; N28.9 Disorder of kidney and ureter, unspecified; I12.9 Hypertensive chronic kidney disease with stage 1 through stage 4 chronic kidney disease, or unspecified chronic kidney disease; E11.22 Type 2 diabetes mellitus with diabetic chronic kidney disease; N18.30 Chronic kidney disease, stage 3 unspecified; E66.01 Morbid (severe) obesity due to excess calories; Z68.41 Body mass index [BMI] 40.0-44.9, adult; E03.9 Hypothyroidism, unspecified; M65.9 Synovitis and tenosynovitis, unspecified
CPT/HCPCS: 27487; 36415; 73560; 80048; 82607; 82728; 83036; 83540; 83615; 84466; 85025; 85045; 87070; 87205; 97116; 97161; 97165; 97530; A9270; J0690; J1170; J1815; J3370; J3490; J7120

== ENCOUNTER 2020-12-13 08:00 | Outpatient (CLI) | payer MEDICARE, OTHER | END 2020-12-13 23:59 | disposition home or self-care (01) | LOC: LAB.N 08:00 | PROVIDERS: ATTEND Orthopaedic Surgery | DX: Z48.89 Encounter for other specified surgical aftercare (principal) | CPT/HCPCS: 87070; 87205; 89051 ==

== ENCOUNTER 2020-12-13 16:08 | Outpatient (CLI) | payer MEDICARE, OTHER ==
[2020-12-13 16:40] LABS: BF CLARITY BLOODY; BF COLOR RED; BF SOURCE SYNOVIAL; CC,BF RBC 194000 /mm^3; CC,BF WBC 9322 /mm^3; MESOTHELIAL %, BF 3 %
[2020-12-13 16:41] LABS: EOSINOPHILS %,BODY FLUID 3 %; LYMPHOCYTES %,BODY FLUID 5 %; MONOCYTES %,BODY FLUID 2 %; NEUTROPHILS %, BF 86 %
[2020-12-13 20:48] LABS: BASOPHILS # (AUTO) 0.1 10^3/uL (0.0-0.1); BASOPHILS % (AUTO) 0.4 %; HCT - HEMATOCRIT 35.2 % (42.0-52.0); HGB - HEMOGLOBIN 11.3 g/dL (14.0-18.0); LYMPHOCYTES # (AUTO) 2.6 10^3/uL (1.5-3.5); MEAN CORPUSCULAR HEMOGLOBIN 30.6 pg (27.0-31.0); MEAN CORPUSCULAR HGB CONC 32.1 g/dL (32.0-36.0); MEAN CORPUSCULAR VOLUME 95.4 fL (80.0-94.0); MEAN PLATELET VOLUME 11.4 fL (7.4-11.4); MONOCYTES % (AUTO) 7.2 %; NEUTROPHILS # (AUTO) 9.9 10^3/uL (1.5-6.6); NEUTROPHILS % (AUTO) 72.4 %; PLT - PLATELET COUNT 446 10^3/uL (130-450); RED BLOOD COUNT 3.69 10^6/uL (4.70-6.10); RED CELL DISTRIBUTION WIDTH 13.3 % (12.0-15.0); WHITE BLOOD COUNT 13.7 x10^3/uL (4.8-10.8)
== END 2020-12-13 16:09 | disposition home or self-care (01) ==
LOC: LAB.N 16:08
PROVIDERS: ATTEND Orthopaedic Surgery
DX: Z48.89 Encounter for other specified surgical aftercare (principal)
CPT/HCPCS: 36415; 85025; 85651; 86140; 87070; 87075; 87205; 89051

== ENCOUNTER 2020-12-19 09:15 | Outpatient (CLI) | payer MEDICARE, OTHER ==
[2020-12-19 12:49] LABS: CALCIUM 9.4 mg/dL (8.5-10.3); CREATININE 1.1 mg/dL (0.6-1.2); POTASSIUM 4.8 mmol/L (3.5-5.0)
[2020-12-19 13:25] LABS: CREATININE,URINE 199.5 mg/dL; MICROALBUMIN,URINE 0.4 mg/dL (0-300.0)
[2020-12-19 13:29] LABS: ESTIMATED AVERAGE GLUCOSE 163 mg/dL (70-100); HEMOGLOBIN A1c% 7.3 % (4.27-6.07)
== END 2020-12-19 09:16 | disposition home or self-care (01) ==
LOC: LAB.N 09:15
PROVIDERS: ATTEND Family Medicine
DX: E11.9 Type 2 diabetes mellitus without complications (principal)
CPT/HCPCS: 36415; 80048; 82043; 82570; 83036

== ENCOUNTER 2021-03-19 08:19 | Outpatient (CLI) | payer MEDICARE, OTHER ==
[2021-03-19 12:15] LABS: BASOPHILS # (AUTO) 0.1 10^3/uL (0.0-0.1); BASOPHILS % (AUTO) 0.6 %; EOSINOPHILS # (AUTO) 0.4 10^3/uL (0.0-0.7); EOSINOPHILS % (AUTO) 5.1 %; HCT - HEMATOCRIT 38.2 % (42.0-52.0); HGB - HEMOGLOBIN 12.5 g/dL (14.0-18.0); LYMPHOCYTES % (AUTO) 22.6 %; MEAN CORPUSCULAR HEMOGLOBIN 30.5 pg (27.0-31.0); MEAN CORPUSCULAR HGB CONC 32.7 g/dL (32.0-36.0); MEAN CORPUSCULAR VOLUME 93.2 fL (80.0-94.0); MEAN PLATELET VOLUME 11.7 fL (7.4-11.4); MONOCYTES # (AUTO) 0.7 10^3/uL (0.0-1.0); MONOCYTES % (AUTO) 7.6 %; NEUTROPHILS # (AUTO) 5.5 10^3/uL (1.5-6.6); NEUTROPHILS % (AUTO) 63.9 %; PLT - PLATELET COUNT 261 10^3/uL (130-450); RED CELL DISTRIBUTION WIDTH 13.4 % (12.0-15.0); WHITE BLOOD COUNT 8.6 x10^3/uL (4.8-10.8)
[2021-03-19 12:25] LABS: CALCIUM 9.3 mg/dL (8.5-10.3); CREATININE 1.1 mg/dL (0.6-1.2); POTASSIUM 4.4 mmol/L (3.5-5.0)
[2021-03-19 13:31] LABS: ESTIMATED AVERAGE GLUCOSE 160 mg/dL (70-100); HEMOGLOBIN A1c% 7.2 % (4.27-6.07)
== END 2021-03-19 08:20 | disposition home or self-care (01) ==
LOC: LAB.N 08:19
PROVIDERS: ATTEND Family Medicine
DX: I10 Essential (primary) hypertension (principal); E11.9 Type 2 diabetes mellitus without complications; E66.9 Obesity, unspecified
CPT/HCPCS: 36415; 80048; 83036; 85025

== ENCOUNTER 2021-05-21 07:48 | Outpatient (CLI) | payer MEDICARE, OTHER ==
[2021-05-21 11:41] LABS: BASOPHILS # (AUTO) 0.1 10^3/uL (0.0-0.1); BASOPHILS % (AUTO) 0.7 %; EOSINOPHILS # (AUTO) 0.3 10^3/uL (0.0-0.7); EOSINOPHILS % (AUTO) 3.1 %; HCT - HEMATOCRIT 38.6 % (42.0-52.0); HGB - HEMOGLOBIN 12.8 g/dL (14.0-18.0); LYMPHOCYTES # (AUTO) 2.3 10^3/uL (1.5-3.5); LYMPHOCYTES % (AUTO) 28.6 %; MEAN CORPUSCULAR HEMOGLOBIN 30.4 pg (27.0-31.0); MEAN CORPUSCULAR HGB CONC 33.2 g/dL (32.0-36.0); MEAN CORPUSCULAR VOLUME 91.7 fL (80.0-94.0); MEAN PLATELET VOLUME 12.2 fL (7.4-11.4); MONOCYTES # (AUTO) 0.7 10^3/uL (0.0-1.0); MONOCYTES % (AUTO) 8.7 %; NEUTROPHILS # (AUTO) 4.8 10^3/uL (1.5-6.6); NEUTROPHILS % (AUTO) 58.7 %; PLT - PLATELET COUNT 227 10^3/uL (130-450); RED BLOOD COUNT 4.21 10^6/uL (4.70-6.10); RED CELL DISTRIBUTION WIDTH 14.2 % (12.0-15.0); WHITE BLOOD COUNT 8.2 x10^3/uL (4.8-10.8)
[2021-05-21 11:55] LABS: ALBUMIN 4.1 g/dL (3.2-5.5); ALBUMIN/GLOBULIN RATIO 1.5 (1.0-2.2); BILIRUBIN,TOTAL 0.4 mg/dL (0.2-1.0); CALCIUM 9.3 mg/dL (8.5-10.3); POTASSIUM 4.2 mmol/L (3.5-5.0); TOTAL PROTEIN 6.9 g/dL (6.7-8.2)
[2021-05-21 11:57] LABS: ESTIMATED AVERAGE GLUCOSE 169 mg/dL (70-100); HEMOGLOBIN A1c% 7.5 % (4.27-6.07)
[2021-05-21 18:48] LABS: CREATININE,URINE 140.1 mg/dL; MICROALBUM/CREATININE RATIO,UR 2.1 ug/mg (<30.0); MICROALBUMIN,URINE 0.3 mg/dL (0-300.0)
== END 2021-05-21 07:49 | disposition home or self-care (01) ==
LOC: LAB.N 07:48
PROVIDERS: ATTEND Family Medicine
DX: E66.9 Obesity, unspecified (principal); K21.9 Gastro-esophageal reflux disease without esophagitis; G47.30 Sleep apnea, unspecified; E11.9 Type 2 diabetes mellitus without complications; I10 Essential (primary) hypertension
CPT/HCPCS: 36415; 80053; 82043; 82570; 83036; 85025

== ENCOUNTER 2021-08-19 12:18 | Outpatient (CLI) | payer MEDICARE, OTHER ==
[2021-08-19 18:06] LABS: BASOPHILS % (AUTO) 0.5 %; EOSINOPHILS % (AUTO) 0.1 %; HCT - HEMATOCRIT 40.8 % (42.0-52.0); HGB - HEMOGLOBIN 13.3 g/dL (14.0-18.0); MEAN CORPUSCULAR HEMOGLOBIN 30.4 pg (27.0-31.0); MEAN CORPUSCULAR HGB CONC 32.6 g/dL (32.0-36.0); MEAN CORPUSCULAR VOLUME 93.4 fL (80.0-94.0); MEAN PLATELET VOLUME 11.7 fL (7.4-11.4); MONOCYTES # (AUTO) 0.5 10^3/uL (0.0-1.0); PLT - PLATELET COUNT 251 10^3/uL (130-450); RED BLOOD COUNT 4.37 10^6/uL (4.70-6.10); RED CELL DISTRIBUTION WIDTH 13.6 % (12.0-15.0); WHITE BLOOD COUNT 8.5 x10^3/uL (4.8-10.8)
[2021-08-19 18:22] LABS: ALBUMIN 4.5 g/dL (3.2-5.5); ALBUMIN/GLOBULIN RATIO 1.5 (1.0-2.2); ALKALINE PHOSPHATASE 69 IU/L (42-121); ALT ALANINE AMINOTRANSFERASE 19 IU/L (10-60); AST ASPARTATE AMINOTRANSFERASE 24 IU/L (10-42); BILIRUBIN,TOTAL 0.5 mg/dL (0.2-1.0); BUN - BLOOD UREA NITROGEN 26 mg/dL (6-20); CALCIUM 9.3 mg/dL (8.5-10.3); CARBON DIOXIDE - CO2 25 mmol/L (21-32); CHLORIDE 105 mmol/L (101-111); CHOLESTEROL 148 mg/dL; CREATININE 1.1 mg/dL (0.6-1.2); GFR - MDRD 67 (>89); GLUCOSE 143 mg/dL (70-100); HDL CHOLESTEROL 50 mg/dL; LDL CHOLESTEROL,CALCULATED 75 mg/dL; LDL/HDL RATIO 1.5 (<3.6); POTASSIUM 4.4 mmol/L (3.5-5.0); SODIUM 141 mmol/L (135-145); TOTAL PROTEIN 7.5 g/dL (6.7-8.2); TRIGLYCERIDES 115 mg/dL; VLDL CHOLESTEROL 23 mg/dL
[2021-08-19 18:31] LABS: CREATININE,URINE 132.2 mg/dL; MICROALBUM/CREATININE RATIO,UR 3.8 ug/mg (<30.0); MICROALBUMIN,URINE 0.5 mg/dL (0-300.0)
[2021-08-19 18:33] LABS: THYROID STIMULATING HORMONE 1.86 uIU/mL (0.34-5.60)
[2021-08-19 19:35] LABS: ESTIMATED AVERAGE GLUCOSE 151 mg/dL (70-100); HEMOGLOBIN A1c% 6.9 % (4.27-6.07)
== END 2021-08-19 12:19 | disposition home or self-care (01) ==
LOC: LAB.N 12:18
PROVIDERS: ATTEND Family Medicine
DX: E11.43 Type 2 diabetes mellitus with diabetic autonomic (poly)neuropathy (principal); K31.84 Gastroparesis; E66.9 Obesity, unspecified; E03.9 Hypothyroidism, unspecified; K21.9 Gastro-esophageal reflux disease without esophagitis; D64.9 Anemia, unspecified; I10 Essential (primary) hypertension; G47.30 Sleep apnea, unspecified
CPT/HCPCS: 36415; 80053; 80061; 82043; 82570; 83036; 83721; 84443; 85025

== ENCOUNTER 2021-11-19 11:10 | Outpatient (CLI) | payer MEDICARE, OTHER ==
[2021-11-19 18:36] LABS: CREATININE 1.1 mg/dL (0.6-1.2); POTASSIUM 4.6 mmol/L (3.5-5.0)
[2021-11-19 21:07] LABS: ESTIMATED AVERAGE GLUCOSE 169 mg/dL (70-100); HEMOGLOBIN A1c% 7.5 % (4.27-6.07)
== END 2021-11-19 11:11 | disposition home or self-care (01) ==
LOC: LAB.N 11:10
PROVIDERS: ATTEND Family Medicine
DX: E11.9 Type 2 diabetes mellitus without complications (principal); I10 Essential (primary) hypertension
CPT/HCPCS: 36415; 80048; 83036

== ENCOUNTER 2021-12-04 10:00 | Outpatient (CLI) | payer MEDICARE, OTHER ==
--- NOTE | 2021-12-04 16:04 | XRAY Report ---
PROCEDURE: Knee 4 View LT INDICATIONS: LEFT TKA FOLLOWUP TECHNIQUE: 4 views of the left knee(s) were acquired. COMPARISON: 12/04/2020 FINDINGS: Bones: There is been interval total left knee arthroplasty. The components appear in satisfactory po sition and there are no unexpected fractures. The joint is congruent. No fractures or dislocations. No suspicious bony lesions. Soft tissues: No joint effusion. Scattered periarticular calcifications anteromedially. IMPRESSION: 1. Satisfactory positioning of left near the plasty components without evidence of loosening. Reviewed by: Fatmata Devlin MD on 12/04/2021 4:02 PM PDT Approved by: Fatmata Devlin MD on 12/04/2021 4:02 PM PDT Station ID: [id number]
== END 2021-12-04 23:59 | disposition home or self-care (01) ==
LOC: DI.WOS 10:00
PROVIDERS: ATTEND Orthopaedic Surgery
DX: Z96.652 Presence of left artificial knee joint (principal)

== ENCOUNTER 2022-02-26 09:15 | Outpatient (CLI) | payer MEDICARE, OTHER ==
[2022-02-26 11:57] LABS: BASOPHILS # (AUTO) 0.1 10^3/uL (0.0-0.1); BASOPHILS % (AUTO) 0.5 %; HCT - HEMATOCRIT 36.1 % (42.0-52.0); HGB - HEMOGLOBIN 12.1 g/dL (14.0-18.0); LYMPHOCYTES # (AUTO) 1.7 10^3/uL (1.5-3.5); LYMPHOCYTES % (AUTO) 17.2 %; MEAN CORPUSCULAR HEMOGLOBIN 31.4 pg (27.0-31.0); MEAN CORPUSCULAR HGB CONC 33.5 g/dL (32.0-36.0); MEAN CORPUSCULAR VOLUME 93.8 fL (80.0-94.0); MEAN PLATELET VOLUME 11.6 fL (7.4-11.4); MONOCYTES # (AUTO) 0.7 10^3/uL (0.0-1.0); MONOCYTES % (AUTO) 7.5 %; NEUTROPHILS # (AUTO) 7.2 10^3/uL (1.5-6.6); NEUTROPHILS % (AUTO) 74.4 %; PLT - PLATELET COUNT 227 10^3/uL (130-450); RED BLOOD COUNT 3.85 10^6/uL (4.70-6.10); RED CELL DISTRIBUTION WIDTH 13.3 % (12.0-15.0); WHITE BLOOD COUNT 9.7 x10^3/uL (4.8-10.8)
[2022-02-26 12:13] LABS: CALCIUM 9.4 mg/dL (8.5-10.3); CREATININE 1.1 mg/dL (0.6-1.2); POTASSIUM 4.6 mmol/L (3.5-5.0)
[2022-02-26 14:31] LABS: ESTIMATED AVERAGE GLUCOSE 169 mg/dL (70-100); HEMOGLOBIN A1c% 7.5 % (4.27-6.07)
== END 2022-02-26 09:16 | disposition home or self-care (01) ==
LOC: LAB.N 09:15
PROVIDERS: ATTEND Family Medicine
DX: K22.4 Dyskinesia of esophagus (principal); K21.9 Gastro-esophageal reflux disease without esophagitis; M25.561 Pain in right knee; M25.562 Pain in left knee; N18.2 Chronic kidney disease, stage 2 (mild); G47.30 Sleep apnea, unspecified; E11.9 Type 2 diabetes mellitus without complications
CPT/HCPCS: 36415; 80048; 82043; 82570; 83036; 85025

== ENCOUNTER 2022-05-20 10:38 | Outpatient (CLI) | payer MEDICARE, OTHER ==
[2022-05-20 12:07] LABS: BASOPHILS # (AUTO) 0.1 10^3/uL (0.0-0.1); BASOPHILS % (AUTO) 0.6 %; EOSINOPHILS % (AUTO) 0.1 %; LYMPHOCYTES # (AUTO) 2.2 10^3/uL (1.5-3.5); MEAN CORPUSCULAR HEMOGLOBIN 31.1 pg (27.0-31.0); MEAN CORPUSCULAR HGB CONC 33.3 g/dL (32.0-36.0); MEAN CORPUSCULAR VOLUME 93.3 fL (80.0-94.0); MEAN PLATELET VOLUME 10.7 fL (7.4-11.4); MONOCYTES # (AUTO) 0.7 10^3/uL (0.0-1.0); MONOCYTES % (AUTO) 6.7 %; NEUTROPHILS # (AUTO) 7.8 10^3/uL (1.5-6.6); NEUTROPHILS % (AUTO) 72.1 %; PLT - PLATELET COUNT 246 10^3/uL (130-450); RED BLOOD COUNT 4.18 10^6/uL (4.70-6.10); RED CELL DISTRIBUTION WIDTH 12.7 % (12.0-15.0); WHITE BLOOD COUNT 10.9 x10^3/uL (4.8-10.8)
[2022-05-20 12:23] LABS: ESTIMATED AVERAGE GLUCOSE 174 mg/dL (70-100); HEMOGLOBIN A1c% 7.7 % (4.27-6.07)
[2022-05-20 12:35] LABS: ALBUMIN/GLOBULIN RATIO 1.3 (1.0-2.2); ALKALINE PHOSPHATASE 69 IU/L (42-121); ALT ALANINE AMINOTRANSFERASE 27 IU/L (10-60); AST ASPARTATE AMINOTRANSFERASE 26 IU/L (10-42); BILIRUBIN,TOTAL 0.8 mg/dL (0.2-1.0); BUN - BLOOD UREA NITROGEN 21 mg/dL (6-20); CALCIUM 8.8 mg/dL (8.5-10.3); CARBON DIOXIDE - CO2 25 mmol/L (21-32); CHLORIDE 104 mmol/L (101-111); CHOL/HDL RATIO 3.2 (<5.0); CHOLESTEROL 133 mg/dL; CREATININE 1.1 mg/dL (0.6-1.2); GFR - MDRD 67 (>89); GLUCOSE 158 mg/dL (70-100); HDL CHOLESTEROL 41 mg/dL; LDL CHOLESTEROL,CALCULATED 70 mg/dL; LDL/HDL RATIO 1.7 (<3.6); POTASSIUM 4.5 mmol/L (3.5-5.0); SODIUM 138 mmol/L (135-145); THYROID STIMULATING HORMONE 1.75 uIU/mL (0.34-5.60); TRIGLYCERIDES 112 mg/dL; VLDL CHOLESTEROL 22 mg/dL
== END 2022-05-20 10:39 | disposition home or self-care (01) ==
LOC: LAB.N 10:38
PROVIDERS: ATTEND Family Medicine
DX: I12.9 Hypertensive chronic kidney disease with stage 1 through stage 4 chronic kidney disease, or unspecified chronic kidney disease (principal); E11.22 Type 2 diabetes mellitus with diabetic chronic kidney disease; N18.2 Chronic kidney disease, stage 2 (mild); K21.9 Gastro-esophageal reflux disease without esophagitis; E66.9 Obesity, unspecified; G47.30 Sleep apnea, unspecified
CPT/HCPCS: 36415; 80053; 80061; 83036; 83721; 84443; 85025

== ENCOUNTER 2022-09-03 09:50 | Outpatient (CLI) | payer MEDICARE, OTHER ==
[2022-09-03 14:00] LABS: CALCIUM 8.6 mg/dL (8.5-10.3)
[2022-09-03 14:02] LABS: ESTIMATED AVERAGE GLUCOSE 171 mg/dL (70-100); HEMOGLOBIN A1c% 7.6 % (4.27-6.07)
== END 2022-09-03 09:51 | disposition home or self-care (01) ==
LOC: LAB.N 09:50
PROVIDERS: ATTEND Family Medicine
DX: I12.9 Hypertensive chronic kidney disease with stage 1 through stage 4 chronic kidney disease, or unspecified chronic kidney disease (principal); E11.22 Type 2 diabetes mellitus with diabetic chronic kidney disease; N18.2 Chronic kidney disease, stage 2 (mild); E11.43 Type 2 diabetes mellitus with diabetic autonomic (poly)neuropathy; K31.84 Gastroparesis; K21.9 Gastro-esophageal reflux disease without esophagitis; M25.561 Pain in right knee; M25.562 Pain in left knee; M17.10 Unilateral primary osteoarthritis, unspecified knee
CPT/HCPCS: 36415; 80048; 83036

== ENCOUNTER 2022-12-02 09:27 | Outpatient (CLI) | payer MEDICARE, OTHER ==
[2022-12-02 12:20] LABS: ESTIMATED AVERAGE GLUCOSE 171 mg/dL (70-100); HEMOGLOBIN A1c% 7.6 % (4.27-6.07)
[2022-12-02 12:34] LABS: POTASSIUM 4.3 mmol/L (3.5-5.0)
== END 2022-12-02 09:28 | disposition home or self-care (01) ==
LOC: LAB.N 09:27
PROVIDERS: ATTEND Family Medicine
DX: I10 Essential (primary) hypertension (principal); E11.21 Type 2 diabetes mellitus with diabetic nephropathy; K21.9 Gastro-esophageal reflux disease without esophagitis
CPT/HCPCS: 36415; 80048; 83036

== ENCOUNTER 2023-05-19 09:22 | Outpatient (CLI) | payer MEDICARE, OTHER ==
[2023-05-19 12:01] LABS: BASOPHILS # (AUTO) 0.1 10^3/uL (0.0-0.1); BASOPHILS % (AUTO) 0.7 %; EOSINOPHILS # (AUTO) 0.6 10^3/uL (0.0-0.7); EOSINOPHILS % (AUTO) 5.5 %; HCT - HEMATOCRIT 39.9 % (42.0-52.0); HGB - HEMOGLOBIN 13.1 g/dL (14.0-18.0); LYMPHOCYTES # (AUTO) 2.5 10^3/uL (1.5-3.5); LYMPHOCYTES % (AUTO) 23.5 %; MEAN CORPUSCULAR HEMOGLOBIN 30.7 pg (27.0-31.0); MEAN CORPUSCULAR HGB CONC 32.8 g/dL (32.0-36.0); MEAN CORPUSCULAR VOLUME 93.4 fL (80.0-94.0); MEAN PLATELET VOLUME 11.8 fL (7.4-11.4); MONOCYTES # (AUTO) 0.6 10^3/uL (0.0-1.0); MONOCYTES % (AUTO) 5.9 %; NEUTROPHILS # (AUTO) 6.8 10^3/uL (1.5-6.6); NEUTROPHILS % (AUTO) 64.1 %; PLT - PLATELET COUNT 229 10^3/uL (130-450); RED BLOOD COUNT 4.27 10^6/uL (4.70-6.10); WHITE BLOOD COUNT 10.6 x10^3/uL (4.8-10.8)
[2023-05-19 12:24] LABS: ALBUMIN 4.2 g/dL (3.2-5.5); ALBUMIN/GLOBULIN RATIO 1.6 (1.0-2.2); ALKALINE PHOSPHATASE 79 IU/L (42-121); ALT ALANINE AMINOTRANSFERASE 21 IU/L (10-60); AST ASPARTATE AMINOTRANSFERASE 20 IU/L (10-42); BILIRUBIN,TOTAL 0.6 mg/dL (0.2-1.0); BUN - BLOOD UREA NITROGEN 19 mg/dL (6-20); CALCIUM 9.7 mg/dL (8.5-10.3); CARBON DIOXIDE - CO2 28 mmol/L (21-32); CHLORIDE 103 mmol/L (101-111); CHOL/HDL RATIO 2.8 (<5.0); CHOLESTEROL 117 mg/dL; GFR - MDRD 74 (>89); GLUCOSE 157 mg/dL (74-104); HDL CHOLESTEROL 42 mg/dL; LDL CHOLESTEROL,CALCULATED 50 mg/dL; LDL/HDL RATIO 1.2 (<3.6); POTASSIUM 4.4 mmol/L (3.5-4.5); SODIUM 139 mmol/L (135-145); TOTAL PROTEIN 6.9 g/dL (6.4-8.9); TRIGLYCERIDES 123 mg/dL (48-352); VLDL CHOLESTEROL 25 mg/dL
[2023-05-19 12:30] LABS: THYROID STIMULATING HORMONE 1.81 uIU/mL (0.34-5.60)
[2023-05-19 14:01] LABS: ESTIMATED AVERAGE GLUCOSE 183 mg/dL (70-100)
== END 2023-05-19 09:23 | disposition home or self-care (01) ==
LOC: LAB.N 09:22
PROVIDERS: ATTEND Family Medicine
DX: E11.65 Type 2 diabetes mellitus with hyperglycemia (principal); E11.21 Type 2 diabetes mellitus with diabetic nephropathy; E66.01 Morbid (severe) obesity due to excess calories; E03.9 Hypothyroidism, unspecified; K21.9 Gastro-esophageal reflux disease without esophagitis; I10 Essential (primary) hypertension; Z12.5 Encounter for screening for malignant neoplasm of prostate
CPT/HCPCS: 36415; 80053; 80061; 83036; 84443; 85025; G0103; 83721; 84153

== ENCOUNTER 2023-10-14 09:53 | Outpatient (CLI) | payer MEDICARE, OTHER ==
[2023-10-14 12:24] LABS: CALCIUM 9.7 mg/dL (8.5-10.3); CREATININE 1.2 mg/dL (0.6-1.3); POTASSIUM 4.2 mmol/L (3.5-4.5)
[2023-10-14 12:31] LABS: ESTIMATED AVERAGE GLUCOSE 183 mg/dL (70-100)
== END 2023-10-14 09:54 | disposition home or self-care (01) ==
LOC: LAB.N 09:53
PROVIDERS: ATTEND Family Medicine
DX: E11.65 Type 2 diabetes mellitus with hyperglycemia (principal)
CPT/HCPCS: 36415; 80048; 83036

== ENCOUNTER 2024-03-09 08:53 | Outpatient (CLI) | payer MEDICARE, OTHER ==
[2024-03-09 12:33] LABS: CREATININE 1.3 mg/dL (0.6-1.3); POTASSIUM 4.6 mmol/L (3.5-4.5)
[2024-03-09 13:40] LABS: ESTIMATED AVERAGE GLUCOSE 189 mg/dL (70-100); HEMOGLOBIN A1c% 8.2 % (4.27-6.07)
== END 2024-03-09 08:54 | disposition home or self-care (01) ==
LOC: LAB.N 08:53
PROVIDERS: ATTEND Family Medicine
DX: E11.65 Type 2 diabetes mellitus with hyperglycemia (principal); E66.01 Morbid (severe) obesity due to excess calories; I10 Essential (primary) hypertension
CPT/HCPCS: 36415; 80048; 83036